=== PATIENT | female | born 1960 | race American Indian/Alaskan Native ===

== ENCOUNTER 2021-09-04 09:45 | Emergency (ER) | payer BC ==
--- NOTE | 2021-09-04 09:56 | Emergency Department Report ---
ED CPR HPI - General Chief Complaint: Cardiac Arrest/CPR Stated Complaint: CARDIAC ARREST Time Seen by Provider: 09/04/21 09:46 - History of Present Illness Initial Comments: Patient was brought in by EMS in cardiac arrest. History is obtained from them. Family was not present upon EMS arrival. The patient was last seen at 4 AM awake. EMS received a call at 9:01 AM as the patient was unresponsive. They arrived on scene. There was no bystander CPR. Patient was warm, but apneic and asystolic. They started CPR. They intubated the patient. IV was established. Patient was given multiple rounds of epinephrine as well as sodium bicarbonate. They continued CPR during the transition. There was no return of spontaneous circulation. Patient remained apneic. She remained in asystole. According to EMS, patient does have a known history of lung cancer. They are uncertain whether she was being treated for this. They arrived at 9:35 AM, which would be at least 34 minutes of asystole. ED Review of Systems ROS: Stated complaint: CARDIAC ARREST Other details as noted in HPI Comment: Unobtainable due to pts medical conditions (Cardiac arrest) ED Past Medical Hx - Past Medical History Additional medical history: Lung cancer per EMS. Cannot be obtained for the patient secondary to cardiac arrest - Surgical History Additional Surgical History: Cannot be obtained for the patient secondary to cardiac arrest - Family History Family history: other (Cannot be obtained for the patient secondary to cardiac arrest) - Social History Substance Use Type: Other (Cannot be obtained for the patient secondary to cardiac arrest) ED Physical Exam - General Limitations: Physical Limitation (Cardiac arrest), Other (CPR was in progress. Patient was cool to touch.) General appearance: other (Unresponsive with CPR in progress) - Head Head exam: Present: normal inspection - Eye Eye exam: Present: other (Pupils were fixed and dilated at 5 mm. Gaze seem to be conjugate.) - ENT ENT exam: Present: other (Orotracheal tube in place.) - Neck Neck exam: Present: normal inspection, other (Trachea midline) - Respiratory Respiratory exam: Present: normal lung sounds bilaterally (With back ventilation) - Cardiovascular Cardiovascular Exam: Present: other (Pulseless) - GI/Abdominal GI/Abdominal exam: Present: soft - Extremities Exam Extremities exam: Present: other (Cool to touch) - Neurological Exam Neurological exam: Present: other (Unresponsive. GCS 3T) - Psychiatric Psychiatric exam: Present: other (Unresponsive) - Skin Skin exam: Present: other (Cool to touch) ED Course - Reevaluation(s) Reevaluation #1: 09/04/21 09:55 EMS was met upon arrival. Patient was transferred from there stretcher to our bed. CPR was continued. Bedside ultrasound was done which demonstrated no car diac activity. All staff in the room discussed measures. Patient had received epinephrine x4 as well as sodium bicarb. There had been 34+ minutes of asystole. Decision was made that the patient should be pronounced. She was pronounced at 9:38 AM. Family was not present at this time. - Procedure Description Procedures done: Procedure note: Bedside ultrasound. Indication: Cardiac arrest, evaluate for cardiac activity. Patient was supine in the bed. CPR was held. We continued back ventilation. Large curvilinear probe was used in a parasternal view. There was no cardiac activity noted. Patient had no pericardial fluid noted. There were no complications from the procedure. Consent was implied. ED Medical Decision Making - Medical Decision Making Patient presented in cardiac arrest. She had had 30+ minutes of asystole with no return of spontaneous circulation. Pupils were fixed and dilated. Patient was ultimately pronounced. Cause of was unknown. Critical Care Time: No (Total CPR time of 3 minutes) Critical care attestation.: If time is entered above; I have spent that time in minutes in the direct care of this critically ill patient, excluding procedure time. ED Disposition Clinical Impression: Cardiac arrest Disposition: 20 Is pt being admited?: No Condition: Stable
== END 2021-09-04 12:30 ==
LOC: ED 09:45
DX: I46.9 Cardiac arrest, cause unspecified (principal); Z98.890 Other specified postprocedural states
CPT/HCPCS: 92950; 99285